=== PATIENT | female | born 1990 | race Caucasian/White ===

== ENCOUNTER 2019-01-22 06:00 | Inpatient (IN) | payer BC ==
[2019-01-22] MEDS ORDERED: OXYTOCIN 10 UNIT/ML 1 ML VIAL IM PRN (06:12)
[2019-01-22] MEDS ORDERED: LIDOCAINE 0.5% (PF) 5 MG/ML (50 ML SDV) SQ PRN (06:12)
[2019-01-22] MEDS ORDERED: CARBOPROST TROMETHAMINE 250 MCG/ML 1 ML AMP IM PRN (06:12)
[2019-01-22] MEDS ORDERED: METHYLERGONOVINE 0.2 MG/ML 1 ML AMP IM PRN (06:12)
[2019-01-22] MEDS ORDERED: TERBUTALINE 1 MG/ML VIAL SQ PRN (06:12)
[2019-01-22] MEDS ORDERED: OXYTOCIN 30 UNITS/500 ML NS 30 UNIT in SALINE 1 500ML.BAG IV SCH (06:12)
[2019-01-22] MEDS: LACTATED RINGERS 1,000 ML IV SCH ×3 (06:15→14:20)
[2019-01-22 06:44] LABS: Basophils % (A) 0 %; Eosinophils # (A) 0.1 k/uL (0-0.7); Eosinophils % (A) 1 %; HCT 37.6 % (34.0-46.0); HGB 12.7 gm/dL (11.4-16.0); Lymphocytes # (A) 1.7 k/uL (1.0-4.8); Lymphocytes % (A) 12 %; MCH 26.6 pg (25.0-35.0); MCHC 33.8 g/dL (31.0-37.0); MCV 78.7 fL (80.0-100.0); Mean Platelet Volume 8.2; Monocytes # (A) 0.6 k/uL (0-1.0); Monocytes % (A) 4 %; Neutrophils # (A) 11.1 k/uL (1.3-7.7); Neutrophils % (A) 81 %; Platelet Count 261 k/uL (150-450); RBC 4.78 m/uL (3.80-5.40); RDW 15.2 % (11.5-15.5); WBC 13.8 k/uL (3.8-10.6)
[2019-01-22] MEDS ORDERED: BUTORPHANOL 1 MG/ML 1 ML VIAL IV PRN (09:24)
[2019-01-22] MEDS ORDERED: SODIUM CHLORIDE 0.9% 100 ML BAG ONE (11:17)
[2019-01-22] MEDS ORDERED: ROPIVACAINE 5MG/ML 20ML VIAL ONE (11:17)
[2019-01-22] MEDS ORDERED: fentaNYL (PF) 50 MCG/ML 5 ML AMP ONE (11:17)
--- NOTE | 2019-01-22 12:46 | P.HPOB ---
History of Present Illness H&P Date: 01/22/19 Chief Complaint: induction of labor 28-year-old presents at 39 weeks and 6 days for induction of labor. Her cervix is 1 cm dilated, 80% effaced, and -2 station. She is jazz irregularly. heart tones 110 with moderate variability and reactive. Review of Systems All systems: negative Constitutional: Denies chills, Denies fever Eyes: denies blurred vision, denies pain Ears, nose, mouth and throat: Denies headache, Denies sore throat Cardiovascular: Denies chest pain, Denies shortness of breath Respiratory: Denies cough Gastrointestinal: Denies abdominal pain, Denies diarrhea, Denies nausea, Denies vomiting Genitourinary: Denies dysuria, Denies hematuria Musculoskeletal: Denies myalgias Integumentary: Denies pruritus, Denies rash Neurological: Denies numbness, Denies weakness Psychiatric: Denies anxiety, Denies depression Endocrine: Denies fatigue, Denies weight change Past Medical History Past Medical History: No Reported History Additional Past Medical History / Comment(s): Migraines History of Any Multi-Drug Resistant Organisms: None Reported Past Surgical History: No Surgical Hx Reported Past Anesthesia/Blood Transfusion Reactions: No Reported Reaction Past Psychological History: No Psychological Hx Reported Smoking Status: Never smoker Past Alcohol Use History: None Reported Past Drug Use History: None Reported - Past Family History Mother Family Medical History: No Reported History Medications and Allergies Home Medications Medication Instructions Recorded Confirmed Type Calcium Carbonate [Calcium] 1 tab PO ONCE 01/22/19 01/22/19 History Folic Acid 1 tab PO ONCE 01/22/19 01/22/19 History [id number]/Iron/FA/O3/Dha/Epa/Fish 1 tab PO ONCE 01/22/19 01/22/19 History [ Multi-Dha Softgel] Allergies Allergy/AdvReac Type Severity Reaction Status Date / Time No Known Allergies Allergy Verified 01/22/19 06:10 Exam Osteopathic Statement: *. No significant issues noted on an osteopathic structural exam other than those noted in the History and Physical/Consult. Vital Signs Temp Pulse Resp BP Pulse Ox 01/22/19 06:09 96.5 F L 88 16 136/96 98 Intake and Output 01/21/19 01/22/19 01/22/19 22:59 06:59 14:59 Other: Weight 94.347 kg Heart: Regular rate and rhythm Lungs: Clear to auscultation bilaterally Abdomen: Soft, nontender Extremities: Negative Homans sign Results Result Diagrams: 01/22/19 06:15 Abnormal Lab Results - Last 24 Hours (Table) 01/22/19 Range/Units 06:15 WBC 13.8 H (3.8-10.6) k/uL MCV 78.7 L (80.0-100.0) fL Neutrophils # 11.1 H (1.3-7.7) k/uL Assessment and Plan (1) Normal labor Current Visit: Yes Status: Acute Code(s): O80 - ENCOUNTER FOR FULL-TERM UNCOMPLICATED DELIVERY; Z37.9 - OUTCOME OF DELIVERY, UNSPECIFIED SNOMED Cod e(s): 25393541 Plan: 1. Amniotomy and Pitocin for induction of labor. 2. Anticipate normal vaginal delivery
[2019-01-22] MEDS ORDERED: diphenhydrAMINE 50 MG CAP PO PRN (19:00)
[2019-01-22] MEDS ORDERED: WITCH HAZEL 1 EACH MED..PAD TOPICAL PRN (19:00)
[2019-01-22] MEDS ORDERED: diphenhydrAMINE 50 MG/ML 1 ML VIAL IVP PRN ×2 (19:00)
[2019-01-22] MEDS ORDERED: SIMETHICONE 80 MG CHEWABLE PO PRN (19:00)
[2019-01-22] MEDS ORDERED: HYDROCORTISONE 2.5% RECTAL CREAM 30 GM TUBE RECTAL PRN (19:00)
[2019-01-22] MEDS ORDERED: LANOLIN CREAM 5 GM TUBE TOPICAL PRN (19:00)
[2019-01-22] MEDS ORDERED: BENZOCAINE/MENTHOL SPRAY 1 GM/SPRAY AEROSOL TOPICAL PRN (19:00)
[2019-01-22] MEDS ORDERED: ZOLPIDEM 5 MG TAB PO PRN (19:00)
[2019-01-22] MEDS ORDERED: OXYTOCIN 20 UNITS/1000 ML NS 1,000 ML IV SCH (19:00)
[2019-01-22] MEDS ORDERED: diphenhydrAMINE 25 MG CAP PO PRN (19:00)
--- NOTE | 2019-01-22 19:06 | P.PROBDLV ---
Vaginal Delivery Note - . Vaginal Delivery Note: 28-year-old presents at 39 weeks and 6 days for induction of labor. Her cervix is 1 cm dilated, 80% effaced, and -2 station. She is jazz irregularly. heart tones 110 with moderate variability and reactive. Pitocin was started. Amniotomy was performed at 7:36 AM, clear fluid noted. She is 3 cm dilated and jazz every 2 minutes she was given an epidural for pain management. Her cervix is completely dilated at 1807. She pushed, and delivered a viable male infant over intact perineum under epidural anesthesia at 1838. Head delivered OA, nuchal cord times one attempt to be reduced and it evulsed. Anterior shoulder delivered gentle downward guidance followed by posterior shoulder and rest of body. Nose and mouth bulb suctioned, cord clamped, and infant handed off to waiting nurses. Apgars 8, 9, weight 8 lbs. 3 oz. Placenta delivered spontaneously, intact with three-vessel cord at 1840. Vagina, cervix, and perineum were inspected. Second-degree midline laceration was repaired with 2-0 Vicryl and 3-0 Vicryl. There was a large mole that the suprapubic area on the right. The cervix infiltrated with lidocaine and then removed using scissors. 3-0 Vicryl was used to close this skin. Mother and baby in stable condition.
[2019-01-22] MEDS: SENNOSIDES-DOCUSATE SODIUM 1 EACH TAB PO SCH (19:58)
[2019-01-22] MEDS: IBUPROFEN 600 MG TAB PO PRN (20:36)
[2019-01-23] MEDS: IBUPROFEN 600 MG TAB PO PRN ×2 (03:32→10:51)
[2019-01-23 04:24] VITALS: RESP 16
--- NOTE | 2019-01-23 06:38 | P.PNOBGVD ---
Subjective - Subjective Patient reports: Reports appetite normal, Reports voiding normally, Reports pain well controlled, Reports ambulating normally : doing well Objective - Latest Vital Signs Latest vital signs: Vital Signs Temp Pulse Resp BP Pulse Ox 01/23/19 04:00 97.9 F 89 16 129/80 01/22/19 23:39 97.8 F 90 18 117/66 100 01/22/19 20:50 106 H 18 127/67 97 01/22/19 20:20 106 H 18 143/78 100 01/22/19 19:50 96.8 F L 100 18 132/78 01/22/19 19:35 97.2 F L 99 17 131/78 01/22/19 19:20 95 18 137/59 98 01/22/19 19:05 100 18 128/62 100 01/22/19 18:50 98.1 F 112 H 16 126/78 Intake and Output 01/22/19 01/22/19 01/23/19 14:59 22:59 06:59 Intake Total 1999 1266 1200 Balance 1999 1266 1200 Intake: Intake, IV Titration 1999 666 Amount Lactated Ringers 1,000 ml 2000 @ 125 mls/hr IV .Q8H BETHANIE Rx#:[id number] Oxytocin 20 Units/1000 ml 666 Ns 1,000 ml @ Per Protocol IV .Q0M BETHANIE Rx#: [id number] Oral 600 1200 Other: # Voids 1 2 - Exam Lungs: bilateral: normal Chest: Normal S1, Normal S2 Extremities: Present: normal Abdomen: Present: normal appearance, soft Uterus: Present: normal, firm - Labs Labs: Abnormal Lab Results - Last 24 Hours (Table) 01/22/19 Range/Units 06:15 WBC 13.8 H (3.8-10.6) k/uL MCV 78.7 L (80.0-100.0) fL Neutrophils # 11.1 H (1.3-7.7) k/uL Assessment and Plan Assessment: day #1. Patient is resting without complaints wishes to go home. V ital signs are stable she is afebrile. Uterus is firm nontender and she is having normal lochia. My impression is a normal course. Plan is to continue routine care and discharge home later today if she continues to feel well. (1) Vaginal delivery Current Visit: Yes Status: Acute Code(s): O80 - ENCOUNTER FOR FULL-TERM UNCOMPLICATED DELIVERY SNOMED Code(s): 145936578
--- NOTE | 2019-01-23 06:41 | P.DS ---
Providers Date of admission: 01/22/19 06:00 Expected date of discharge: 01/23/19 Attending physician: Mildred Vera Primary care physician: Stated None - Discharge Diagnosis(es) (1) Vaginal delivery Current Visit: Yes Status: Acute Hospital Course: Please see dictated H&P per Dr. Vera on this patient's admission. Brief summary this is a pleasant 28-year-old 1 para 0 female 39-6/7 weeks who is admitted to labor and delivery for elective induction of labor. Patient was on have a vaginal delivery of viable male . Please see dictated delivery note. day #1 patient without complaints she wishes to go home. She is felt to be stable for discharge home follow up with Dr. Vera and 6 weeks. Procedures: Induction of labor and normal vaginal delivery Patient Condition at Discharge: Good Plan - Discharge Summary New Discharge Prescriptions: New Ibuprofen [Motrin] 600 mg PO Q6HR PRN #30 tab PRN Reason: Mild Pain Or Fever >= 100.5 No Action Exd041/Iron/FA/O3/Dha/Epa/Fish [ Multi-Dha Softgel] 1 tab PO ONCE Folic Acid 1 tab PO ONCE Calcium Carbonate [Calcium] 1 tab PO ONCE Discharge Medication List Calcium Carbonate [Calcium] 1 tab PO ONCE 01/22/19 [History] Folic Acid 1 tab PO ONCE 01/22/19 [History] [id number]/Iron/FA/O3/Dha/Epa/Fish [ Multi-Dha Softgel] 1 tab PO ONCE 01/22/19 [History] Ibuprofen [Motrin] 600 mg PO Q6HR PRN #30 tab 01/23/19 [Rx] Follow up Appointment(s)/Referral(s): Mildred Vera DO [Doctor of Osteopathic Medicine] - 03/05/19 11:15 am Patient Instructions/Handouts: Vaginal Delivery (DC) Activity/Diet/Wound Care/Special Instructions: No intercourse or anything per vagina for 6 weeks. Please call if any fever, chills, excessive vaginal bleeding, and/or abdominal pain. Discharge Disposition: HOME SELF-CARE
[2019-01-23] MEDS: SENNOSIDES-DOCUSATE SODIUM 1 EACH TAB PO SCH (08:34)
[2019-01-23] MEDS: ACETAMINOPHEN TAB 325 MG TAB PO PRN ×2 (08:34→14:25)
[2019-01-23 16:20] VITALS: BP 122/76; PULSE 74; TEMP 98
== END 2019-01-23 19:35 | disposition home or self-care (01) | DRG 807 ==
LOC: 4FBP 06:00
PROVIDERS: ADMIT Obstetrics & Gynecology; ATTEND Obstetrics & Gynecology
PROC: 10E0XZZ Delivery of Products of Conception, External Approach (ICD-10-PCS; principal; 2019-01-22)
PROC: 0KQM0ZZ Repair Perineum Muscle, Open Approach (ICD-10-PCS; 2019-01-22)
PROC: 0HB9XZZ Excision of Perineum Skin, External Approach (ICD-10-PCS; 2019-01-22)
PROC: 3E033VJ Introduction of Other Hormone into Peripheral Vein, Percutaneous Approach (ICD-10-PCS; 2019-01-22)
PROC: 10907ZC Drainage of Amniotic Fluid, Therapeutic from Products of Conception, Via Natural or Artificial Opening (ICD-10-PCS; 2019-01-22)
PROC: 00HU33Z Insertion of Infusion Device into Spinal Canal, Percutaneous Approach (ICD-10-PCS; 2019-01-22)
PROC: 3E0R3BZ Introduction of Anesthetic Agent into Spinal Canal, Percutaneous Approach (ICD-10-PCS; 2019-01-22)
DX: O69.81X0 Labor and delivery complicated by cord around neck, without compression, not applicable or unspecified (principal); Z37.0 Single live birth; O70.1 Second degree perineal laceration during delivery; Z3A.39 39 weeks gestation of pregnancy; G43.909 Migraine, unspecified, not intractable, without status migrainosus; D22.5 Melanocytic nevi of trunk; Z79.899 Other long term (current) drug therapy
CPT/HCPCS: 85025; 86850; 86900; 86901

== ENCOUNTER 2022-09-27 06:00 | Inpatient (IN) | payer BC ==
[2022-09-27] MEDS: LACTATED RINGERS 1,000 ML IV SCH ×3 (06:25→11:04)
[2022-09-27] MEDS ORDERED: miSOPROStoL 200 MCG TAB PO PRN (06:32)
[2022-09-27] MEDS ORDERED: LIDOCAINE 0.5% (PF) 5 MG/ML (50 ML SDV) SQ PRN (06:32)
[2022-09-27] MEDS ORDERED: METHYLERGONOVINE 0.2 MG/ML 1 ML AMP IM PRN (06:32)
[2022-09-27] MEDS ORDERED: TRANEXAMIC 1,000 MG/100ML-NACL 1,000 MG in EMPTY BAG 1 BAG IV PRN (06:32)
[2022-09-27] MEDS ORDERED: OXYTOCIN 10 UNIT/ML 1 ML VIAL IM PRN (06:32)
[2022-09-27] MEDS ORDERED: TERBUTALINE 1 MG/ML VIAL SQ PRN (06:32)
[2022-09-27] MEDS ORDERED: CARBOPROST TROMETHAMINE 250 MCG/ML 1 ML AMP IM PRN (06:32)
[2022-09-27] MEDS ORDERED: OXYTOCIN 30 UNITS/500 ML NS 30 UNIT in SALINE 1 500ML.BAG IV SCH (06:45)
[2022-09-27 07:01] LABS: Basophils % (A) 0 %; Eosinophils # (A) 0.1 k/uL (0-0.7); Eosinophils % (A) 1 %; HGB 12.5 gm/dL (11.4-16.0); Lymphocytes # (A) 1.5 k/uL (1.0-4.8); Lymphocytes % (A) 15 %; MCH 27.8 pg (25.0-35.0); MCHC 34.9 g/dL (31.0-37.0); MCV 79.6 fL (80.0-100.0); Mean Platelet Volume 8.6; Monocytes # (A) 0.5 k/uL (0-1.0); Monocytes % (A) 5 %; Neutrophils # (A) 7.7 k/uL (1.3-7.7); Neutrophils % (A) 76 %; Platelet Count 208 k/uL (150-450); RBC 4.52 m/uL (3.80-5.40); RDW 15.2 % (11.5-15.5); WBC 10.1 k/uL (3.8-10.6)
--- NOTE | 2022-09-27 07:59 | P.HPOB ---
History of Present Illness H&P Date: 09/27/22 Chief Complaint: induction of labor 31 year old presents at 39 weeks 1 day for induction of labor. Her cervix is 1/60/-2 and she is jazz irregulalry. heart tones 135 with moderate variability and reactive. Review of Systems All systems: negative Constitutional: Denies chills, Denies fever Eyes: denies blurred vision, denies pain Ears, nose, mouth and throat: Denies headache, Denies sore throat Cardiovascular: Denies chest pain, Denies shortness of breath Respiratory: Denies cough Gastrointestinal: Denies abdominal pain, Denies diarrhea, Denies nausea, Denies vomiting Genitourinary: Denies dysuria, Denies hematuria Musculoskeletal: Denies myalgias Integumentary: Denies pruritus, Denies rash Neurological: Denies numbness, Denies weakness Psychiatric: Denies anxiety, Denies depression Endocrine: Denies fatigue, Denies weight change Past Medical History Past Medical History: No Reported History Additional Past Medical History / Comment(s): Migraines History of Any Multi-Drug Resistant Organisms: None Reported Past Surgical History: No Surgical Hx Reported Past Anesthesia/Blood Transfusion Reactions: No Reported Reaction Past Psychological History: No Psychological Hx Reported Smoking Status: Never smoker Past Alcohol Use History: None Reported Past Drug Use History: None Reported - Past Family History Mother Family Medical History: No Reported History Medications and Allergies Home Medications Medication Instructions Recorded Confirmed Type Calcium Carbonate [Calcium] 1 tab PO ONCE 01/22/19 09/27/22 History Folic Acid 1 tab PO ONCE 01/22/19 09/27/22 History Iiv015/Iron/FA/O3/Dha/Epa/Fish 1 tab PO ONCE 01/22/19 09/27/22 History [ Multi-Dha Softgel] Allergies Allergy/AdvReac Type Severity Reaction Status Date / Time No Known Allergies Allergy Verified 09/27/22 06:30 Exam Osteopathic Statement: *. No significant issues noted on an osteopathic struc tural exam other than those noted in the History and Physical/Consult. Vital Signs Temp Pulse Resp BP Pulse Ox 09/27/22 06:40 97.5 F L 81 16 125/77 98 Intake and Output 09/26/22 09/27/22 09/27/22 22:59 06:59 14:59 Other: Weight 95.708 kg Heart: Regular rate and rhythm Lungs: Clear to auscultation bilaterally Abdomen: Soft, nontender Extremities: Negative Homans sign Results Result Diagrams: 09/27/22 06:25 Abnormal Lab Results - Last 24 Hours (Table) 09/27/22 Range/Units 06:25 MCV 79.6 L (80.0-100.0) fL Assessment and Plan (1) Elective induction of labor planned Current Visit: Yes Status: Acute Code(s): [id number] - SNOMED Code(s): 243752460 Plan: 1. Induction of labor with amniotomy and Pitocin 2. Anticipate normal vaginal delivery
[2022-09-27] MEDS ORDERED: ROPIVACAINE 5 MG/ML 20 ML AMPULE ONE (10:00)
[2022-09-27] MEDS ORDERED: SODIUM CHLORIDE 0.9% 100 ML BAG ONE (10:00)
[2022-09-27] MEDS ORDERED: fentaNYL (PF) 50 MCG/ML 5 ML AMP ONE (10:00)
[2022-09-27] MEDS ORDERED: ZOLPIDEM 5 MG TAB PO PRN (15:31)
[2022-09-27] MEDS ORDERED: diphenhydrAMINE 25 MG CAP PO PRN (15:31)
[2022-09-27] MEDS ORDERED: BENZOCAINE/MENTHOL SPRAY 1 GM/SPRAY AEROSOL TOPICAL PRN (15:31)
[2022-09-27] MEDS ORDERED: ACETAMINOPHEN TAB 325 MG TAB PO PRN (15:31)
[2022-09-27] MEDS ORDERED: LANOLIN CREAM 5 GM TUBE TOPICAL PRN (15:31)
[2022-09-27] MEDS ORDERED: diphenhydrAMINE 50 MG CAP PO PRN (15:31)
[2022-09-27] MEDS ORDERED: diphenhydrAMINE 50 MG/ML 1 ML VIAL IVP PRN ×2 (15:31)
[2022-09-27] MEDS ORDERED: SIMETHICONE 80 MG CHEWABLE PO PRN (15:31)
[2022-09-27] MEDS ORDERED: HYDROCORTISONE 2.5% RECTAL CREAM 30 GM TUBE RECTAL PRN (15:31)
[2022-09-27] MEDS: IBUPROFEN 600 MG TAB PO PRN ×2 (16:39→23:31)
[2022-09-27] MEDS: SENNOSIDES-DOCUSATE SODIUM 1 EACH TAB PO SCH (19:23)
[2022-09-28] MEDS: IBUPROFEN 600 MG TAB PO PRN ×2 (05:12→11:08)
[2022-09-28 06:12] LABS: Basophils % (A) 0 %; Eosinophils # (A) 0.1 k/uL (0-0.7); Eosinophils % (A) 1 %; HCT 31.9 % (34.0-46.0); Lymphocytes # (A) 1.7 k/uL (1.0-4.8); Lymphocytes % (A) 16 %; MCH 27.9 pg (25.0-35.0); MCHC 34.6 g/dL (31.0-37.0); MCV 80.7 fL (80.0-100.0); Mean Platelet Volume 8.8; Monocytes # (A) 0.6 k/uL (0-1.0); Monocytes % (A) 5 %; Neutrophils # (A) 8.2 k/uL (1.3-7.7); Neutrophils % (A) 75 %; Platelet Count 180 k/uL (150-450); RBC 3.96 m/uL (3.80-5.40); RDW 15.4 % (11.5-15.5); WBC 10.9 k/uL (3.8-10.6)
[2022-09-28 08:34] VITALS: BP 108/69; PULSE 108; RESP 16; TEMP 98
[2022-09-28] MEDS: LACTATED RINGERS 1,000 ML IV SCH (08:34)
[2022-09-28] MEDS: SENNOSIDES-DOCUSATE SODIUM 1 EACH TAB PO SCH (08:34)
--- NOTE | 2022-09-28 09:39 | P.PROBDLV ---
Vaginal Delivery Note - . Vaginal Delivery Note: 31 year old presents at 39 weeks 1 day for induction of labor. Her cervix is 1/60/-2 and she is jazz irregulalry. heart tones 135 with moderate variability and reactive. Pitocin was started and amniotomy performed at 7:29 AM, clear fluid noted. When she was uncomfortable she did get an epidural. Cervix was completely dilated at 1457. She pushed, delivered a viable female over intact perineum under epidural anesthesia at 1512. Head delivered OA, anterior shoulder delivered gentle downward guidance followed by posterior shoulder and rest of body. Nose and mouth bulb suctioned, cord clamped and cut, infant placed mother's abdomen. Apgars 9, 9, weight 7 lbs. 10 oz. Placenta delivered spontaneous a, intact with three-vessel cord at 1514. Vagina, cervix, perineum inspected. Second-degree midline laceration was repaired with 3-0 Vicryl. Estimated blood loss 200 mL. Mother and baby in stable condition.
--- NOTE | 2022-09-28 09:41 | P.DS ---
Providers Date of admission: 09/27/22 06:07 Expected date of discharge: 09/28/22 Attending physician: Mildred Vera Primary care physician: Stated None - Discharge Diagnosis(es) (1) Elective induction of labor planned Current Visit: Yes Status: Resolved (2) Vaginal delivery Current Visit: No Status: Acute Hospital Course: Patient presented for induction of labor. She underwent a normal vaginal delivery. course was uneventful. She denies nausea, vomiting, chest pain, shortness of breath or calf pain. Patient will be discharged home day #1 in stable condition to follow-up with me in 6 weeks. Plan - Discharge Summary New Discharge Prescriptions: New Ibuprofen [Motrin] 600 mg PO Q6HR PRN #30 tab PRN Reason: Mild Pain Or Fever >= 100.5 No Action [id number]/Iron/FA/O3/Dha/Epa/Fish [ Multi-Dha Softgel] 1 tab PO ONCE Folic Acid 1 tab PO ONCE Calcium Carbonate [Calcium] 1 tab PO ONCE Discharge Medication List Calcium Carbonate [Calcium] 1 tab PO ONCE 01/22/19 [History] Folic Acid 1 tab PO ONCE 01/22/19 [History] Vsj152/Iron/FA/O3/Dha/Epa/Fish [ Multi-Dha Softgel] 1 tab PO ONCE 01/22/19 [History] Ibuprofen [Motrin] 600 mg PO Q6HR PRN #30 tab 09/28/22 [Rx] Follow up Appointment(s)/Referral(s): Mildred Vera DO [Doctor of Osteopathic Medicine] - 6 Weeks Discharge Disposition: HOME SELF-CARE
== END 2022-09-28 15:45 | disposition home or self-care (01) | DRG 807 ==
LOC: 4FBP 06:07
PROVIDERS: ADMIT Obstetrics & Gynecology; ATTEND Obstetrics & Gynecology
PROC: 10E0XZZ Delivery of Products of Conception, External Approach (ICD-10-PCS; principal; 2022-09-27)
PROC: 0KQM0ZZ Repair Perineum Muscle, Open Approach (ICD-10-PCS; 2022-09-27)
PROC: 10907ZC Drainage of Amniotic Fluid, Therapeutic from Products of Conception, Via Natural or Artificial Opening (ICD-10-PCS; 2022-09-27)
PROC: 3E033VJ Introduction of Other Hormone into Peripheral Vein, Percutaneous Approach (ICD-10-PCS; 2022-09-27)
DX: O70.1 Second degree perineal laceration during delivery (principal); Z37.0 Single live birth; Z3A.39 39 weeks gestation of pregnancy
CPT/HCPCS: 85025; 86850; 86900; 86901